=== PATIENT | male | born 1975 | race Caucasian/White ===

== ENCOUNTER 2023-03-20 15:57 | Inpatient (IN) | payer MEDICAID ==
[~2023-03-20] VITALS: Ht 172.7 cm; Wt 125.4 kg
[2023-03-20] VITALS (113 sets, daily range): BP systolic 149–166; BP diastolic 87–105; PULSE 100–115; TEMP 98.5–98.8; O2SAT 78–99
[~2023-03-20 15:57] MED LIST: ASPIRIN 81M81 MG/TA2 PO; BREO IH; BUSPAR10 MG PO; CELEXA40 MG PO; CLARITIN 1010 MG/TAB PO; COREG12.5 MG PO; GLUCOPHAGE1000 MG PO; GLUCOTROL10 MG PO; LIPITOR 40MG TA40 MG PO; NEURONTIN300 MG/CAP PO; PRILOSEC 20MG20 MG PO; PRINIVIL40 MG PO; RISPERDAL2 MG PO
--- NOTE | 2023-03-20 17:00 | NUR ---
Pt arrives to ICU 7 from [facility] ED at this time. Pt alert and oriented upon arrival but unsure of time of day it is. Pt is extremely anxious, tachypneic, and SOA; Has trouble sitting still and following commands. Admission questions obtains from both pt and from via phone call. Pt has cellphone, wallet, shoes, and clothes with him upon admission. Pt wishes to keep all belongings in closet in room. Dr. Boswell made aware of pt's arrival at 1710. Dr. Boswell arrived to see patient at approx 1720 and would like consult called to ENT due to pt's trouble breathing and possible upper airway obstruction due to strep throat. Dr. Rowe called and made aware of consult at 1725.
[2023-03-20] MEDS ORDERED: ALBUTEROL0.83 MG/ML IH ×2 (17:57→19:37)
[2023-03-20] MEDS ORDERED: PROAIR HFA0.09 MG/AC IH ×2 (17:57→19:37)
[2023-03-20] MEDS ORDERED: COREG CR20 MG PO (17:59)
[2023-03-20 18:00] LABS: HEMATOCRIT 38.2 % (42.0-52.0); HEMOGLOBIN 12.8 g/dl (13.5-18.0); MEAN CELL VOLUME 89 fl (80.0-100.0); MEAN CORPUSCULAR HEMOGLOBIN 30 pg (27-31); MEAN CORPUSCULAR HGB CONC 34 g/dl (33.0-37.0); MEAN PLATELET VOLUME 8.7 fl (7.4-10.4); PLATELET COUNT 280 K/mm3 (130-400); RED BLOOD COUNT 4.28 M/mm3 (4.20-5.60); REDCELL DISTRIBUTION WIDTH-CV 12.1 % (11.5-14.5)
[2023-03-20] MEDS ORDERED: CELEXA 20MG20 MG/TAB PO (18:00)
[2023-03-20] MEDS ORDERED: GLUCOTROL XL5 MG/TAB PO ×2 (18:09→19:30)
[2023-03-20] MEDS ORDERED: MOBIC15 MG PO ×2 (18:09→19:31)
[2023-03-20 18:10] LABS: ALBUMIN 2.9 gm/dL (3.5-5.0); CALCIUM 8.9 mg/dL (8.4-10.2); CREATININE, serum 0.94 mg/dL (0.72-1.25); PHOSPHOROUS 2.9 mg/dL (2.3-4.7); POTASSIUM 4.1 mmol/L (3.5-4.5)
[2023-03-20 18:32] LABS: ARTERIAL BLD GAS O2 SATURATION 94.8 % (92-100); ARTERIAL BLD GAS TCO2 CT 21.7; ARTERIAL BLOOD GAS BASE EXCESS -2.5 (-2-2); ARTERIAL BLOOD GAS HCO3 20.7 meq/L (22-26); ARTERIAL BLOOD GAS PCO2 31.6 mmHg (35-45); ARTERIAL BLOOD GAS PO2 77.2 mmHg (80-100); ARTERIAL BLOOD GAS pH 7.44 (7.35-7.45)
[2023-03-20] MEDS ORDERED: PRAVACHOL80 MG PO (19:31)
[2023-03-20] MEDS ORDERED: CELEXA40 MG PO (19:32)
[2023-03-20] MEDS ORDERED: BUSPAR10 MG PO (19:32)
[2023-03-20] MEDS ORDERED: NEURONTIN300 MG/CAP PO (19:33)
[2023-03-20] MEDS ORDERED: PRINIVIL40 MG PO (19:33)
[2023-03-20] MEDS ORDERED: RISPERDAL2 MG PO (19:34)
[2023-03-20] MEDS ORDERED: OZEMPIC0.25 MG/02 SQ (19:34)
[2023-03-20] MEDS ORDERED: COREG12.5 MG PO (19:34)
[2023-03-20] MEDS ORDERED: BREO ELLIPTA 21 EACH IH (19:34)
[2023-03-20] MEDS ORDERED: NITROSTAT0.4 MG/TAB SL (19:35)
[2023-03-20] MEDS ORDERED: CLARITIN 1010 MG/TAB PO (19:35)
[2023-03-20] MEDS ORDERED: GLUCOPHAGE1000 MG PO (19:35)
[2023-03-20] MEDS ORDERED: PRILOSEC 20MG20 MG PO (19:36)
[2023-03-20] MEDS ORDERED: ASPIRIN 81M81 MG/TA2 PO (19:36)
[2023-03-20] MEDS ORDERED: DEPAKOTE500 MG PO (19:37)
[2023-03-21] VITALS (19 sets, daily range): BP systolic 144–174; BP diastolic 65–88; PULSE 64–111; TEMP 98–98.5; O2SAT 53–100
[2023-03-21 00:44] LABS: COLLECTION METHOD CLEAN CATCH
[2023-03-21 01:00] LABS: AMORPHOUS CRYSTAL Present (NOT PRESENT); SQUAMOUS EPITHELIAL 0-2 /hpf (0-10); URINE APPEARANCE Turbid (CLEAR/HAZY); URINE BACTERIA Rare /hpf (NONE SEEN); URINE BLOOD 1+ (NEGATIVE); URINE COLOR Yellow (YELLOW); URINE GLUCOSE Negative (NEGATIVE); URINE KETONE Negative (NEGATIVE); URINE NITRATE Negative (NEGATIVE); URINE PROTEIN(semi-quant) 2+ (NEGATIVE); URINE UROBILINOGEN 0.2 E.U/dL (0.2-1.0)
[2023-03-21 05:36] LABS: HEMATOCRIT 38.4 % (42.0-52.0); HEMOGLOBIN 12.7 g/dl (13.5-18.0); MEAN CELL VOLUME 91 fl (80.0-100.0); MEAN CORPUSCULAR HEMOGLOBIN 30 pg (27-31); MEAN CORPUSCULAR HGB CONC 33 g/dl (33.0-37.0); MEAN PLATELET VOLUME 8.8 fl (7.4-10.4); PLATELET COUNT 283 K/mm3 (130-400); RED BLOOD COUNT 4.21 M/mm3 (4.20-5.60); REDCELL DISTRIBUTION WIDTH-CV 12.1 % (11.5-14.5)
[2023-03-21 05:55] LABS: ALBUMIN 2.8 gm/dL (3.5-5.0); CALCIUM 9.2 mg/dL (8.4-10.2); CREATININE, serum 0.99 mg/dL (0.72-1.25); PHOSPHOROUS 3.6 mg/dL (2.3-4.7); POTASSIUM 4.5 mmol/L (3.5-4.5)
[2023-03-21 06:14] LABS: BAND 5 % (0-10); HYPOCHROMIA 1+; LYMPHOCYTE 3 % (20.0-51.0); NEUTROPHILS 88 % (42.0-75.2); PLATELET ESTIMATE NORMAL (NORMAL)
--- NOTE | 2023-03-21 08:30 | NUR ---
Patient resting in bed; alert and oriented. Requesting to use the bathroom. Assisted up to use the toilet. Utilized a walker due to a slightly unsteady gait. Assessment WNL. Call light left within reach and bed alarm activated.
[2023-03-21] MEDS ORDERED: PROAIR HFA0.09 MG/AC IH ×2 (09:21→09:22)
[2023-03-21] MEDS ORDERED: AMOXICILLIN 8751 TAB PO (12:05)
--- NOTE | 2023-03-21 12:05 | NUR ---
Patient becoming increasingly agitated with staff. When requesting something from staff he asks in an irritated manor and becomes very upset if asked to clarify or confirm his request. After this nurse assisted patient to the bathroom patient became irate and demanded to leave AMA. Nurse notifed hospitalist and retrieved the AMA form. When this nurse returned to the room patient had removed his gown and monitoring lines. IV site was removed. Patient called his and yelled at her to come pick him up. stated that she could not at this time due to road conditions from snow. Patient again became extremely agitated. Sat down on the edge of the bed and then leaned forward off the bed and rolled onto his left side on the floor. Attempted to assist patient onto his back and patient stated "I can do it myself" and then rolled easily onto his back. VS were obtained while still on the ground and were at his baseline. Patient was wearing socks and tennis shoes at the time of the fall. Patient then stated he could get up and was able to get himself off the floor without assistance. Sat on the edge of the bed again and then dramatically swooned backwards into the bed and immediately revived himself. Patient then reported upper gastric pain. EKG was obtained and showed sinus tachycardia. Stated pain was at a 1/10 and if felt like pain from rolling on the floor. Dr. Sara Bauman was notfied of this event. After rounding Dr. Bauman put in discharge orders from patient. Patient agreed to take an Uber home and transportation was arranged for him. This nurse spoke with patient's and patient's behaviors. asked if we were giving him his bipolar medication. States that the patient can become extremely difficult if not taking his medications. Bipolar medications administered prior to discharge.
--- NOTE | 2023-03-21 12:40 | NUR ---
Assisted to arrange an uber for patient. Patient pain by his personal credit card. Assisted patient out to the ER entrance to wait for the uber ride. Awake and fully alert upon discharge.
== END 2023-03-21 12:40 | disposition home or self-care (01) | DRG 872 ==
LOC: IMCU 15:57 → ICU 17:05
PROVIDERS: ADMIT Internal Medicine
DX: A41.9 Sepsis, unspecified organism (principal); Z68.41 Body mass index [BMI] 40.0-44.9, adult; J96.10 Chronic respiratory failure, unspecified whether with hypoxia or hypercapnia; J02.0 Streptococcal pharyngitis; E11.9 Type 2 diabetes mellitus without complications; I10 Essential (primary) hypertension; G40.909 Epilepsy, unspecified, not intractable, without status epilepticus; J04.30 Supraglottitis, unspecified, without obstruction; E66.9 Obesity, unspecified; J44.9 Chronic obstructive pulmonary disease, unspecified; F41.9 Anxiety disorder, unspecified; F31.9 Bipolar disorder, unspecified; I25.10 Atherosclerotic heart disease of native coronary artery without angina pectoris; K21.9 Gastro-esophageal reflux disease without esophagitis; Z23 Encounter for immunization; Z86.16 Personal history of COVID-19; Z87.891 Personal history of nicotine dependence; Z79.82 Long term (current) use of aspirin; Z79.84 Long term (current) use of oral hypoglycemic drugs; Z79.899 Other long term (current) drug therapy; Z88.8 Allergy status to other drugs, medicaments and biological substances; Z99.81 Dependence on supplemental oxygen
CPT/HCPCS: J2060; J2543; J2920; J7030; Q9967